=== PATIENT | male | born 1990 | race African-American/Black ===

== ENCOUNTER 2024-02-25 09:55 | Emergency (ER) | payer MEDICAID, OTHER ==
[~2024-02-25] VITALS: Ht 182.9 cm; Wt 97.1 kg
[2024-02-25] MEDS ORDERED: FLUORESCEIN SODIUM 1 MG STRIP ONE (10:21)
[2024-02-25] MEDS: FLUORESCEIN SODIUM 1 MG STRIP OP ONE (10:22)
[2024-02-25] MEDS: TETRACAINE HCL 0.5% OPHT DROP 2 ML BOTTLE OP ONE (10:22)
[2024-02-25] MEDS ORDERED: TETRACAINE HCL 0.5% OPHT DROP 2 ML BOTTLE ONE (10:22)
[2024-02-25] MEDS ORDERED: GENT5DRO4 LEFTEYE (10:38)
[2024-02-25 10:45] VITALS: BP 116/80; TEMP 98.6; O2SAT 98
== END 2024-02-25 10:53 | disposition home or self-care (01) ==
LOC: ER 09:55
DX: H10.32 Unspecified acute conjunctivitis, left eye (principal); Z79.899 Other long term (current) drug therapy
CPT/HCPCS: A4606; A4663